=== PATIENT | male | born 1965 | race Caucasian/White ===

== ENCOUNTER 2021-05-25 07:52 | Outpatient (CLI) | payer BC, SELFPAY ==
--- NOTE | 2021-05-25 08:29 | XR_ITS ---
WS: [id number] SI JOINTS TECHNIQUE: 3 views of the sacroiliac joints CLINICAL INFORMATION: LOW BACK PAIN COMPARISON: None. FINDINGS: Degenerative arthritis sacroiliac joints. No evidence of sacroiliitis. No significant periarticular e rosive changes. A few incidental pelvic phleboliths. XR/XR sacroiliac jts m 3V [id number] IMPRESSION: 1. Mild degenerative arthritis sacroiliac joints. 2. No evidence of sacroiliitis or significant erosive changes.
--- NOTE | 2021-05-25 08:29 | XR_ITS ---
WS: [id number] LUMBAR SPINE TECHNIQUE: 3 views of the lumbar spine CLINICAL INFORMATION: LOW BACK PAIN COMPARISON: None. FINDINGS: Five [id number] lumbar vertebral bodies. Lumbar curve convex right. Retrolisthesis L3 on L4 and L4 on L5 measuring 5 mm L3-4 and 4 mm at L4-5. Trace retrolisthesis L2-3. Disc space narrowing worse at L2-3. No acute appearing compression fractures. Moderate facet arthropathy L4-L5 and L5-S1 with karely ny foraminal narrowing. Aortic calcification. Suspected bilateral pars defects L4-5 and possibly also L5-S1. This can be further evaluated with CT for better anatomic detail. XR/XR lumbar spine 2-3V* [id number] IMPRESSION: 1. Mild lumbar curve convex right. No acute compression fractures. 2. Retrolisthesis L3 on L4 and L4 on L5 described above. 3. Trace retrolisthesis L2 on L3 with mild disc space narrowing. 4. Moderate facet arthropathy L4-L5 and L5-S1 with suspected bilateral pars de fects L4-5 and also possibly L5-S1. Recommend lumbar spine CT for more definiti ve evaluation and better anatomic detail.
== END 2021-05-25 07:53 | disposition home or self-care (01) ==
PROVIDERS: Visit Provider Family Medicine
DX: M54.5 Low back pain (principal); G89.29 Other chronic pain; M46.1 Sacroiliitis, not elsewhere classified; M47.816 Spondylosis without myelopathy or radiculopathy, lumbar region; M47.817 Spondylosis without myelopathy or radiculopathy, lumbosacral region
CPT/HCPCS: 72100; 72202

== ENCOUNTER 2021-06-19 09:27 | Outpatient (CLI) | payer BC, SELFPAY ==
--- NOTE | 2021-06-19 09:45 | USCV_ITS ---
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 Dr Susan Sorensen MD FAC (Electronically Signed) Final Date: 21 June 2021 07:10 S
== END 2021-06-19 09:28 | disposition home or self-care (01) ==
LOC: RAD 09:32
PROVIDERS: PCP Nurse Practitioner; Visit Provider Nurse Practitioner
DX: M79.673 Pain in unspecified foot (principal)
CPT/HCPCS: 93922

== ENCOUNTER → 2021-07-04 07:54 | Outpatient (BNVA) | payer BC, SELFPAY | PROVIDERS: PCP Nurse Practitioner; Visit Provider Specialist | DX: G62.89 Other specified polyneuropathies (principal); F17.200 Nicotine dependence, unspecified, uncomplicated | CPT/HCPCS: 95885; 95909; 99202 ==

== ENCOUNTER 2021-08-10 09:57 | Outpatient (CLI) | payer BC, SELFPAY ==
--- NOTE | 2021-08-10 10:06 | CT_ITS ---
WS: [id number] CT LUMBAR SPINE, noncontrast. HISTORY: BILATERAL LUMBAR PARS DEFECT TECHNIQUE: Contiguous 2.5 mm axial imaging are performed. Sagittal and coronal reformats are submitte d and reviewed. All CT [facility] use at least one of these dose optimization techni ques: automated exposure control; mA and/or kV adjustment per patient size (includes targeted exams w here dose is matched to clinical indication); or iterative reconstruction. IV contrast: None DLP: 2084.76 mGycm COMPARISON: None available. Mild straightening of the normal lumbar lordosis. 2 to 3 mm retrolisthesis of the L2 and L3 vertebral bodies. Mild disc space narrowing at L2-3 and L3-4. Small endplate osteophytes throughout the lumbar spine. No fractures or pars defects. L1-2: Mild disc bulging. No stenosis. L2-3: Mild osteophytic ridging and very slight retrolisthesis of L2 with mild encroachment upon the t hecal sac. Disc is asymmetrically bulging to the LEFT. Very mild narrowing of the subarticular recess es. No stenosis. L3-4: Mild diffuse annular disc bulging with mild ligamentum flavum and facet arthritis. There is als o osteophytic ridging. Combination of findings is causing the mild and effacement of ventral CSF encr oachment upon the thecal sac. Mild central stenosis with mild to moderate subarticular and foraminal stenosis. Slightly greater stenosis involving the LEFT foramen. L4-5: Moderate diffuse annular disc bulging with mild encroachment upon the ventral thecal sac. Disc bulging effacing the ventral CSF and causing moderate bilateral subarticular recess and foraminal tere nosis. Mild facet joint arthritis. L5-S1: Shallow central disc protrusion. Effacement of the ventral CSF. Very mild bilateral foraminal stenosis. No high-grade stenosis. Mild bilateral facet joint arthritis. Normal SI joints. Mild atherosclerosis within the visualized aorta. CT/CT lumbar spine wo con* [id number] IMPRESSION: 1. No high-grade central stenosis. 2. Mild central stenosis at L3-4 with mild to moderate bilateral subarticular and foraminal stenosis predominantly due to disc disease. 3. Moderate bilateral subarticular recess and foraminal stenosis at L4-5. 4. Very mild bilateral foraminal stenosis at L5-S1. 5. Slight retrolisthesis of L2 and L3.
== END 2021-08-10 09:58 | disposition home or self-care (01) ==
PROVIDERS: PCP Nurse Practitioner; Visit Provider Family Medicine
DX: M43.10 Spondylolisthesis, site unspecified (principal); M48.061 Spinal stenosis, lumbar region without neurogenic claudication; M48.07 Spinal stenosis, lumbosacral region
CPT/HCPCS: 72131

== ENCOUNTER → 2022-03-28 09:18 | Outpatient (BNVA) | payer BC, SELFPAY | PROVIDERS: PCP Family Medicine; Visit Provider Specialist | DX: G62.9 Polyneuropathy, unspecified (principal); R20.0 Anesthesia of skin; R20.2 Paresthesia of skin; G61.81 Chronic inflammatory demyelinating polyneuritis; R29.90 Unspecified symptoms and signs involving the nervous system | CPT/HCPCS: 36415; 80053; 82607; 83036; 83520; 83921; 84443; 85025; 85651; 86160; 86162; 86235; 86255; 86334; 86376 ==

== ENCOUNTER → 2022-05-28 08:22 | Outpatient (BNVA) | payer OTHER, SELFPAY | PROVIDERS: PCP Physician Assistant; Visit Provider Specialist | DX: G62.9 Polyneuropathy, unspecified (principal) | CPT/HCPCS: 62270; 80503; 82945; 84157; 86592; 87070; 87075; 87205; 89050; 99213 ==

== ENCOUNTER → 2022-08-21 08:07 | Outpatient (BNVA) | payer OTHER, SELFPAY | PROVIDERS: PCP Physician Assistant; Visit Provider Specialist | DX: G62.9 Polyneuropathy, unspecified (principal); G43.711 Chronic migraine without aura, intractable, with status migrainosus | CPT/HCPCS: 99214 ==

== ENCOUNTER → 2022-12-18 08:47 | Outpatient (BNVA) | payer OTHER, SELFPAY | PROVIDERS: PCP Physician Assistant; Visit Provider Specialist | DX: G62.89 Other specified polyneuropathies (principal); G43.711 Chronic migraine without aura, intractable, with status migrainosus; M54.50 Low back pain, unspecified | CPT/HCPCS: 99214 ==

== ENCOUNTER 2024-03-05 06:00 | Outpatient (RCR) | payer OTHER, SELFPAY | END 2024-03-06 23:59 | disposition home or self-care (01) | LOC: GPT 06:00 | PROVIDERS: Visit Provider Physician Assistant | DX: M25.551 Pain in right hip (principal); M25.552 Pain in left hip | CPT/HCPCS: 97110; 97162 ==

== ENCOUNTER 2024-03-07 06:00 | Outpatient (RCR) | payer OTHER, SELFPAY | END 2024-04-05 23:59 | disposition home or self-care (01) | LOC: GPT 06:00 | PROVIDERS: Visit Provider Physician Assistant | DX: M25.552 Pain in left hip (principal); M25.551 Pain in right hip | CPT/HCPCS: 97110 ==

== ENCOUNTER 2024-04-06 06:00 | Outpatient (RCR) | payer OTHER, SELFPAY | END 2024-05-06 23:59 | disposition home or self-care (01) | LOC: GPT 06:00 | PROVIDERS: Visit Provider Physician Assistant | DX: M25.551 Pain in right hip (principal); M25.552 Pain in left hip | CPT/HCPCS: 97110; 97140 ==

== ENCOUNTER 2025-07-28 07:10 | Outpatient (CLI) | payer OTHER, SELFPAY ==
--- NOTE | 2025-07-28 07:17 | CT_ITS ---
WS: [id number] CT HEAD NONCONTRAST HISTORY: ENDOCRINE DISORDER TECHNIQUE: Contiguous axial imaging performed through the brain. Bone and soft tissue windows. Sagittal and coronal reformats reviewed. All CT scans at [facility] use at least one of these dose optimization techniques: automated exposure control; mA and/or kV adjustment per patient size (includes targeted exams where dose is matched to clinical indication); or iterative reconstruction. DLP: 1197.59 mGy.cm COMPARISON: None available. No acute intracranial hemorrhage, midline shift or mass effect. No atrophy or prior infarcts or herniation. Ventricles: Normal size with no hydrocephalus. No intra displacement the cerebellar tonsils. No enlargement of the pituitary gland identified by CT. Paranasal sinuses: As visualized are clear. Mastoid air cells: Well pneumatized. Calvarium and scalp: Skull is intact with no soft tissue edema or swelling. CT/CT head wo con* [id number] IMPRESSION: 1. Unremarkable noncontrast CT head. 2. No intracranial hemorrhage or edema. 3. No prior infarct or significant volume loss.
== END 2025-07-28 07:11 | disposition home or self-care (01) ==
LOC: RAD 07:12
PROVIDERS: PCP Family Medicine Geriatric Medicine; Visit Provider Family Medicine Geriatric Medicine
DX: E34.9 Endocrine disorder, unspecified (principal)
CPT/HCPCS: 70450